=== PATIENT | male | born 1985 | race Caucasian/White ===

== ENCOUNTER 2016-11-23 16:55 | Emergency (ER) | payer OTHER ==
[2016-11-23 17:00] VITALS: BP 124/72; PULSE 101; RESP 20; TEMP 98.1
[2016-11-23] MEDS ORDERED: DIPH,PERTUS(ACELL)TETVAC-LF 0.5 ML VIAL IM ONE (17:24)
[2016-11-23] MEDS ORDERED: AMOXIC-POT CLAV 875-125MG 1 EACH TAB PO STA (17:26)
[2016-11-23] MEDS ORDERED: IBUPROFEN 800 MG TAB PO STA (17:27)
--- NOTE | 2016-11-23 18:15 | XR ---
EXAMINATION TYPE: XR hand complete LT DATE OF EXAM: 11/23/2016 COMPARISON: NONE HISTORY: Dog bite TECHNIQUE: 3 views FINDINGS: 3 views show no fracture nor dislocation. There is a linear lucency in the soft tissues between the f ourth and fifth proximal phalanges that could be a foreign body. Joint spaces are normal. Conclusion Possible small foreign body. No fracture.
--- NOTE | 2016-11-23 18:32 | ED ---
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 No other complaints or, he is not sure when he had loss tetanus shot down be updated today - Related Data Home Medications Medication Instructions Recorded Confirmed Hydrochlorothiazide [Hydrodiuril] 25 mg PO DAILY 11/23/16 11/23/16 Losartan [Cozaar] 50 mg PO DAILY 11/23/16 11/23/16 Previous Rx's Medication Instructions Recorded Amoxic-Pot Clav 875-125Mg 1 tab PO Q12HR #16 tablet 11/23/16 [Augmentin 875-125] Ibuprofen [Motrin] 600 mg PO Q6HR PRN #30 tab 11/23/16 Allergies Allergy/AdvReac Type Severity Reaction Status Date / Time No Known Allergies Allergy Verified 11/23/16 17:41 Review of Systems ROS Statement: Those systems with pertinent positive or pertinent negative responses have been documented in the HPI. ROS Other: All systems not noted in ROS Statement are negative. Past Medical History Past Medical History: No Reported History History of Any Multi-Drug Resistant Organisms: None Reported Additional Past Surgical History / Comment(s): Left knee surgery Past Psychological History: No Psychological Hx Reported Smoking Status: Never smoker Past Alcohol Use History: Occasional Past Drug Use History: None Reported General Exam - General Exam Comments Initial Comments: General: The patient is awake and alert, in no distress, and does not appear acutely ill. Skin: Skin has a wound which is about 1 cm between the fourth and fifth finger is quite tender mildly swollen decreased range of motion with pain, capillary refills are still within normal range and he is able to flex and extend his fingers at the metacarpophalangeal joints Eye: Pupils are equal, round and reactive to light, extra-ocular movements are intact; there is normal conjunctiva bilaterally. Ears, nose, mouth and throat: There are moist mucous membranes and no oral lesions. Neck: The neck is supple, there is no tenderness or JVD. Cardiovascular: There is a regular rate and rhythm. No murmur, rub or gallop is appreciated. Respiratory: To auscultation bilateral, no wheezing no rhonchi no distress respiratory richards noticed Gastrointestinal: Soft, non-distended, non-tender abdomen without masses or organomegaly noted. There is no rebound or guarding present. Bowel sounds are unremarkable. Back: There is no tenderness to palpation in the midline. There is no obvious deformity. Musculoskeletal: Normal ROM, no tenderness, There is no pedal edema. There is no calf tenderness or swelling. No cords were appreciated. Neurological: CN II-XII intact, Cranial nerves III through XII are intact. There are no obvious motor or sensory deficits. Coordination appears grossly intact. Speech is normal. Psychiatric: Cooperative, appropriate mood & affect, normal judgment. Limitations: no limitations Course Vital Signs 11/23/16 16:57 Temperature 98.1 F Pulse Rate 101 H Respiratory 20 Rate Blood Pressure 124/72 O2 Sat by Pulse 98 Oximetry Disposition Clinical Impression: Dog bite, Foreign body of left hand Disposition: HOME SELF-CARE Condition: Good Instructions: Animal Bite (ED) Prescriptions: Amoxic-Pot Clav 875-125Mg [Augmentin 875-125] 1 tab PO Q12HR #16 tablet Ibuprofen [Motrin] 600 mg PO Q6HR PRN #30 tab PRN Reason: Pain Referrals: None,Stated [Primary Care Provider] - 1-2 days Donavan Granados MD [STAFF PHYSICIAN] - 1-2 days
== END 2016-11-23 18:57 | disposition home or self-care (01) ==
LOC: EC 16:55
DX: S61.452A Open bite of left hand, initial encounter (principal); Z23 Encounter for immunization; Z79.899 Other long term (current) drug therapy; W54.0XXA Bitten by dog, initial encounter; Y99.0 Civilian activity done for income or pay
CPT/HCPCS: 90471; 90715; 99283

== ENCOUNTER → 2016-11-28 | Outpatient (CLI) | payer OTHER ==
[2016-11-28 11:27] LABS: Anisocytosis Slight; Basophils % (A) 1 %; CH 22.6; CHCM 31.4; Eosinophils # (A) 0.1 k/uL (0-0.7); Eosinophils % (A) 2 %; HCT 37.6 % (39.0-53.0); HDW 3.72; HGB 11.3 gm/dL (13.0-17.5); Hypochromasia Marked; Luc # (Auto) 0.09; Luc % (Auto) 2; Lymphocytes # (A) 1.6 k/uL (1.0-4.8); Lymphocytes % (A) 32 %; MCH 21.7 pg (25.0-35.0); MCV 72.4 fL (80.0-100.0); Mean Platelet Volume 7.5; Microcytosis Moderate; Monocytes # (A) 0.3 k/uL (0-1.0); Monocytes % (A) 6 %; Neutrophils # (A) 2.8 k/uL (1.3-7.7); Neutrophils % (A) 58 %; Poikilocytosis Slight; RDW 16.3 % (11.5-15.5); WBC 4.9 k/uL (3.8-10.6); WBC (Perox) 4.53
== END | disposition home or self-care (01) ==
LOC: LABPAT 11:00 → LABMAIN 11:00
PROVIDERS: ATTEND Orthopaedic Surgery
DX: Z01.812 Encounter for preprocedural laboratory examination (principal)
CPT/HCPCS: 85025

== ENCOUNTER → 2016-11-28 | Outpatient (CLI) | payer BC ==
--- NOTE | 2016-11-28 10:58 | HP ---
HISTORY AND PHYSICAL CHIEF COMPLAINT: Left hand pain. 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 Initially, he was seen in the emergency room and was started on oral antibiotics. He was also again given a tetanus booster. He had been working with restrictions since. He does note some soreness and stiffness. He denies fevers or chills. PAST MEDICAL HISTORY: Significant for hypertension. PAST SURGICAL HISTORY: Significant for right knee surgery. CURRENT MEDICATIONS: 1. Cozaar. 2. Augmentin. He denies drug allergies. FAMILY HISTORY: Significant for cancer. SOCIAL HISTORY: Negative for current tobacco or alcohol use. 16-POINT REVIEW OF SYSTEMS: Otherwise reviewed and is noncontributory. On examination, the patient is approximately 6 foot tall, 235 pounds. HEENT exam is nonfocal. Neck is supple. He is nontender about the left shoulder, elbow and wrist. On examination of his left hand, he does have a 6 mm wound over the dorsal left fourth interspace. He has full digital range of motion. There is no warmth or erythema. He has no significant purulence or erythema. Light touch is distally intact. X-rays to include multiple views left hand from 11/23/2016 shows evidence of a probable foreign body in the between the fourth and fifth digits at the MCP joint. IMPRESSION: Dog bite left hand with probable foreign body, left dorsal fourth interspace. RECOMMENDATIONS: I talked to the patient at length regarding his treatment options. At this point, we will plan to proceed with attempted foreign body removal along with irrigation and debridement. We will likely perform that as an outpatient procedure. We will have him continue with his Augmentin. MMODL / IJN: [id number] /
== END | disposition home or self-care (01) ==
LOC: LABPAT 09:01 → LABWHC1 09:01
PROVIDERS: ATTEND Urology
DX: N00-N99 Diseases of the genitourinary system (principal); E29.1 Testicular hypofunction
CPT/HCPCS: 36415; 81220; 84403

== ENCOUNTER 2016-11-29 12:12 | Day surgery (SDC) | payer BC, OTHER ==
[2016-11-28 13:01] VITALS: BMI 31.8
[~2016-11-29 12:12] MED LIST: DEXAMETHASONE SOD PHOSPHATE 10 MG/ML 1 ML VIAL IV ONE; LACTATED RINGERS 1,000 ML IV SCH; LIDOCAINE 1% 20 ML VIAL (10MG/ML) FOR IV START INTRADERMA PRN; MIDAZOLAM 2 MG/2 ML VIAL IV PRN; ONDANSETRON 4 MG/2 ML VIAL IVP ONE; SCOPOLAMINE 1.5MG/72HR PATCH TRANSDERM ONE; ceFAZolin 2 GM in SODIUM CHLORIDE 0.9% 100 ML IVPB ONE
[2016-11-29] MEDS ORDERED: ePHEDrine SULFATE/0.9% NACL/PF 50 MG/5 ML SYRINGE IV ONE (14:04)
[2016-11-29] MEDS ORDERED: fentaNYL (PF) 50 MCG/ML 2 ML AMP ONE (14:04)
[2016-11-29] MEDS ORDERED: LIDOCAINE 1% INJ 10MG/ML (20 ML MDV) ONE (14:04)
[2016-11-29] MEDS ORDERED: PROPOFOL 10 MG/ML 20 ML VIAL IV ONE (14:04)
[2016-11-29] MEDS ORDERED: MIDAZOLAM 2 MG/2 ML VIAL ONE (14:04)
--- NOTE | 2016-11-29 15:10 | P.OP ---
Date of Procedure: 11/29/16 Preoperative Diagnosis: Dog bite left hand with possible foreign body Postoperative Diagnosis: Same Procedure(s) Performed: Irrigation and debridement left hand fourth dorsal interspace dogbite Anesthesia: BERNY Surgeon: Donavan Granados Estimated Blood Loss (ml): 2 Pathology: none sent Condition: stable Disposition: PACU Indications for Procedure: The patient's a 31-year-old male who presents after sustaining a dog bite to his left hand last week. He had a 6 mm laceration over the fourth dorsal interspace between the fourth and fifth digits. There was a suspected foreign body. A discussion of the risks and benefits of operative intervention was made with the patient and his family. They opted to proceed. Operative risks to include infection, neurovascular injury, possible need for subsequent procedures was discussed. Informed consent was obtained. Operative Findings: 1 x 2 mm foreign body Description of Procedure: The patient was brought to the operating room, and after induction of general anesthesia the left upper extremity was prepped and draped in normal fashion. The tourniquet was inflated to 250 mg of mercury. The 6 mm laceration between the fourth and fifth digits on the dorsum of the hand was then explored. The tendon sheath appeared intact along the dorsum of the fourth digit. A 1 x 2 mm foreign body was found and removed. I did not find any larger fragments. The soft tissues were bluntly dissected clearly inspecting the entire region. The wound was copiously irrigated normal saline. I did use fluoroscopy and was unable to identify any radiopaque foreign bodies. The skin was reapproximated loosely with simple 3-0 nylon suture. A sterile dressing was applied. The tourniquet was deflated with less than 30 minutes total tourniquet time. The patient was awoken from general anesthesia and transferred to recovery room in good condition. Blood loss was estimated 2 mL. No complications were incurred. Sponge and needle counts were correct at the end the case.
--- NOTE | 2016-11-29 15:12 | FL ---
EXAMINATION TYPE: FL guidance operating room DATE OF EXAM: 11/29/2016 HISTORY: Flouroscopy time 8 seconds of fluoroscopy provided. IMPRESSION: 1. Fluoroscopy time.
[2016-11-29 15:20] VITALS: TEMP 98
[2016-11-29] MEDS: HYDROmorphone 1 MG/ML 1 ML SYRINGE IVP PRN ×2 (15:38→15:44)
[2016-11-29 16:00] VITALS: RESP 18
[2016-11-29] MEDS ORDERED: HYDROcodone/APAP 5-325MG 1 EACH TAB PO ONE (16:00)
[2016-11-29 16:34] VITALS: BP 122/74; PULSE 78
== END 2016-11-29 16:33 | disposition home or self-care (01) ==
LOC: OR 12:12
PROVIDERS: ATTEND Orthopaedic Surgery
DX: S61.452A Open bite of left hand, initial encounter (principal); W54.0XXA Bitten by dog, initial encounter; I10 Essential (primary) hypertension; Z79.899 Other long term (current) drug therapy
CPT/HCPCS: 20103; J2250; J1100; J0690; J2405; J2001; J3010; J1170; J2704

== ENCOUNTER → 2017-09-07 | Outpatient (CLI) | payer OTHER ==
--- NOTE | 2017-09-07 14:16 | XR ---
Left hand HISTORY: Trauma and pain 3 views of the left hand Correlation to prior exam 11/23/2016 Bone mineralization, joint spaces and alignment are maintained. IMPRESSION: No radiographically apparent fracture or dislocation
== END | disposition home or self-care (01) ==
LOC: RADXRMAIN 13:59
PROVIDERS: ATTEND Emergency Medicine
DX: S63.611A Unspecified sprain of left index finger, initial encounter (principal)

== ENCOUNTER 2018-06-16 18:12 | Inpatient (IN) | payer BC ==
[2018-06-16] MEDS ORDERED: SODIUM CHLORIDE 0.9% 500 ML 500 ML IV STA (18:45)
--- NOTE | 2018-06-16 18:54 | ED ---
General Adult HPI - General Chief complaint: Syncope Stated complaint: Near Syncope Time Seen by Provider: 06/16/18 18:23 Source: patient, family, RN notes reviewed Mode of arrival: ambulatory Limitations: no limitations - History of Present Illness Initial comments: Chief complaint and history of present illness; this 32-year-old male here with his significant other. The patient reports that increasingly Radha Celestin bends down his heart rate was up as high as 160 and he nearly passes out. Denies any chest painsignificant shortness of breath. - Related Data Home Medications Medication Instructions Recorded Confirmed Hydrochlorothiazide [Hydrodiuril] 25 mg PO DAILY 11/23/16 11/29/16 Losartan [Cozaar] 50 mg PO DAILY 11/23/16 11/29/16 Previous Rx's Medication Instructions Recorded Amoxic-Pot Clav 875-125Mg 1 tab PO Q12HR #16 tablet 11/23/16 [Augmentin 875-125] Ibuprofen [Motrin] 600 mg PO Q6HR PRN #30 tab 11/23/16 Amoxic-Pot Clav 875-125Mg 1 tab PO Q12HR #14 tablet 11/29/16 [Augmentin 875-125] Hydrocodone/Acetaminophen [Pioneer 1 each PO Q6HR PRN #20 tab 11/29/16 5-325] Allergies Allergy/AdvReac Type Severity Reaction Status Date / Time No Known Allergies Allergy Verified 06/16/18 18:20 Review of Systems ROS Statement: Those systems with pertinent positive or pertinent negative responses have been documented in the HPI. Review of systems patient denies headache or visual acuity changes no chest pain or shortness of breath. He does report that when he bends over he near faints he has a smart watch that told him his heart rate got as high as 160. This is been recurrent over the past several days and worse today. Patient denies abdominal pain no neuro deficits. All systems were reviewed. Past medical problems significant for hypertension without medication current blood pressure 134/86. He's had orthopedic surgery, tonsillectomy. Family history noncontribu tory ALLERGIES none. Denies drugs. He has been trying to lately has been trying [id number] medication, a name he can't remember. ROS Other: All systems not noted in ROS Statement are negative. Past Medical History Past Medical History: Hypertension History of Any Multi-Drug Resistant Organisms: None Reported Past Surgical History: Orthopedic Surgery, Tonsillectomy Additional Past Surgical History / Comment(s): Left knee surgery Past Anesthesia/Blood Transfusion Reactions: No Reported Reaction Additional Past Anesthesia/Blood Transfusion Reaction / Comment(s): dad had an issue with anesthesia, pt is unaware of what it was Past Psychological History: No Psychological Hx Reported Smoking Status: Never smoker Past Alcohol Use History: Occasional Past Drug Use History: None Reported - Past Family History Mother Family Medical History: No Reported History General Exam - General Exam Comments Initial Comments: General: The patient is awake and alert, in no distress, and does not appear acutely ill. Chief complaint is rapid heart rate with near-syncope when bending over and standing up. He measured his heart rate to be 166 earlier today. Current vital signs temperature 99.5 pulse 107 respiratory rate 18 pulse ox 99% room air blood pressure 134/86. He states it does not occur if he's not exerting himself. It only occurs with exertion Eye: Pupils are equal, round and reactive to light, extra-ocular movements are intact; there is normal conjunctiva bilaterally. No signs of icterus. Patient is wearing contact lenses. Ears, nose, mouth and throat: There are moist mucous membranes and no oral lesions. Neck: The neck is supple, there is no tenderness or JVD. Thyroid not enlarged. Cardiovascular: There is a regular rate and rhythm. No murmur, rub or gallop is appreciated. Rate 98 on examination, EKG showed normal sinus rhythm Respiratory: Lungs are clear to auscultation, respirations are non-labored, breath sounds are equal. No wheezes, stridor, rales, or rhonchi. Gastrointestinal: Soft, non-distended, non-tender abdomen without masses or organomegaly noted. There is no rebound or guarding present. No CVA tenderness. Bowel sounds are unremarkable. Back: There is no tenderness to palpation in the midline. There is no obvious deformity. No rashes noted. Musculoskeletal: Normal ROM, no tenderness, There is no pedal edema. There is no calf tenderness or swelling. Sensation intact. Pulses equal bilaterally 2+. Neurological: CN II-XII intact, There are no obvious motor or sensory deficits. Coordination appears grossly intact. Speech is normal. Near-syncope when he stands up after bending down and exerting himself. Skin: Skin is warm and dry and no rashes or lesions are noted. Psychiatric: Cooperative, appropriate mood & affect, normal judgment. Limitations: no limitations Course Vital Signs 06/16/18 18:16 Temperature 99.5 F Pulse Rate 107 H Respiratory 18 Rate Blood Pressure 134/86 O2 Sat by Pulse 99 Oximetry EKG Findings - EKG Comments: EKG Findings:: EKG was done and reviewed at 1833 showing normal sinus rhythm rate 98. DC interval was 160 QRS 106 QT 332 QTc 423. No acute ST elevation no ectopy no ischemic changes. No old EKG to compare to. Dr. Younger Medical Decision Making - Medical Decision Making Medical decision making; is a 32-year-old male with a complaint of very rapid heart rate to 166 with exertion. Patient reports been ongoing for several weeks and getting progressively worse. The patient has a smart watch that tells fast it was earlier. He reports he nearly passed out. Otherwise denies any chest pain or shortness of breath associated with this. Labs performed showing a white count of 8 hemoglobin 7.6 hematocrit 27 with a BUN of 4.1 and a BUN 15 creatinine 1.3 and a GFR 71. Once these numbers were realized that the patient was asked if he had any rectal bleeding and he admitted that over the years he's had significant amount of rectal bleeding. He has been told in the past that he has perianal tags. This. Although he may have internal hemorrhoids. He also states that after having bowel movements he has [address] to 112 paper that her prevent bleeding. This is been a chronic ongoing thing. The patient is symptomatically anemic. One unit of packed RBCs will be admini stered. The patient be admitted with evaluation by GI. Patient be admitted to hospitalist, Dr. Alejo, with whom I discussed the case. - Lab Data Result diagrams: 06/16/18 18:30 06/16/18 18:30 Lab Results 06/16/18 06/16/18 06/16/18 Range/Units 18:30 18:30 18:30 WBC 8.3 (3.8-10.6) k/uL RBC 4.28 L (4.30-5.90) m/uL Hgb 7.6 L (13.0-17.5) gm/dL Hct 27.0 L (39.0-53.0) % MCV 63.1 L (80.0-100.0) fL MCH 17.8 L (25.0-35.0) pg MCHC 28.2 L (31.0-37.0) g/dL RDW 17.2 H (11.5-15.5) % Plt Count 313 (150-450) k/uL Neutrophils % 68 % Lymphocytes % 24 % Monocytes % 4 % Eosinophils % 1 % Basophils % 1 % Neutrophils # 5.7 (1.3-7.7) k/uL Lymphocytes # 2.0 (1.0-4.8) k/uL Monocytes # 0.4 (0-1.0) k/uL Eosinophils # 0.1 (0-0.7) k/uL Basophils # 0.1 (0-0.2) k/uL Hypochromasia Marked Poikilocytosis Moderate Anisocytosis Slight Microcytosis Marked PT (9.0-12.0) sec INR (<1.2) APTT (22.0-30.0) sec D-Dimer (<0.60) mg/L FEU Sodium 142 (137-145) mmol/L Potassium 4.1 (3.5-5.1) mmol/L Chloride 111 H (98-107) mmol/L Carbon Dioxide 21 L (22-30) mmol/L Anion Gap 10 mmol/L BUN 15 (9-20) mg/dL Creatinine 1.30 H (0.66-1.25) mg/dL Est GFR (CKD-EPI)AfAm 83 (>60 ml/min/1.73 sqM) Est GFR (CKD-EPI)NonAf 71 (>60 ml/min/1.73 sqM) Glucose 79 (74-99) mg/dL Calcium 9.7 (8.4-10.2) mg/dL Magnesium 2.1 (1.6-2.3) mg/dL Total Bilirubin 0.6 (0.2-1.3) mg/dL AST 22 (17-59) U/L ALT 24 (21-72) U/L Alkaline Phosphatase 59 (38-126) U/L Creatine Kinase 82 (55-170) U/L CK-MB (CK-2) 0.5 (0.0-2.4) ng/mL Troponin I <0.012 (0.000-0.034) ng/mL Total Protein 6.6 (6.3-8.2) g/dL Albumin 4.2 (3.5-5.0) g/dL TSH 1.730 (0.465-4.680) mIU/L Influenza Type A RNA (Not Detectd) Influenza Type B (PCR) (Not Detectd) 06/16/18 06/16/18 Range/Units 18:30 18:38 WBC (3.8-10.6) k/uL RBC (4.30-5.90) m/uL Hgb (13.0-17.5) gm/dL Hct (39.0-53.0) % MCV (80.0-100.0) fL MCH (25.0-35.0) pg MCHC (31.0-37.0) g/dL RDW (11.5-15.5) % Plt Count (150-450) k/uL Neutrophils % % Lymphocytes % % Monocytes % % Eosinophils % % Basophils % % Neutrophils # (1.3-7.7) k/uL Lymphocytes # (1.0-4.8) k/uL Monocytes # (0-1.0) k/uL Eosinophils # (0-0.7) k/uL Basophils # (0-0.2) k/uL Hypochromasia Poikilocytosis Anisocytosis Microcytosis PT 10.6 (9.0-12.0) sec INR 1.0 (<1.2) APTT 21.6 L (22.0-30.0) sec D-Dimer 0.33 (<0.60) mg/L FEU Sodium (137-145) mmol/L Potassium (3.5-5.1) mmol/L Chloride (98-107) mmol/L Carbon Dioxide (22-30) mmol/L Anion Gap mmol/L BUN (9-20) mg/dL Creatinine (0.66-1.25) mg/dL Est GFR (CKD-EPI)AfAm (>60 ml/min/1.73 sqM) Est GFR (CKD-EPI)NonAf (>60 ml/min/1.73 sqM) Glucose (74-99) mg/dL Calcium (8.4-10.2) mg/dL Magnesium (1.6-2.3) mg/dL Total Bilirubin (0.2-1.3) mg/dL AST (17-59) U/L ALT (21-72) U/L Alkaline Phosphatase (38-126) U/L Creatine Kinase (55-170) U/L CK-MB (CK-2) (0.0-2.4) ng/mL Troponin I (0.000-0.034) ng/mL Total Protein (6.3-8.2) g/dL Albumin (3.5-5.0) g/dL TSH (0.465-4.680) mIU/L Influenza Type A RNA Not Detected (Not Detectd) Influenza Type B (PCR) Not Detected (Not Detectd) Disposition Clinical Impression: Symptomatic anemia, GI bleed Disposition: ADMITTED IP TO THIS HOSP Condition: Fair Is patient prescribed a controlled substance at d/c from ED?: No Referrals: None,Stated [Primary Care Provider] - 1-2 days
[2018-06-16 18:56] LABS: Anisocytosis Slight; Basophils # (A) 0.1 k/uL (0-0.2); Basophils % (A) 1 %; Eosinophils # (A) 0.1 k/uL (0-0.7); Eosinophils % (A) 1 %; HGB 7.6 gm/dL (13.0-17.5); Hypochromasia Marked; Lymphocytes % (A) 24 %; MCH 17.8 pg (25.0-35.0); MCHC 28.2 g/dL (31.0-37.0); MCV 63.1 fL (80.0-100.0); Mean Platelet Volume 10.8; Microcytosis Marked; Monocytes # (A) 0.4 k/uL (0-1.0); Monocytes % (A) 4 %; Neutrophils # (A) 5.7 k/uL (1.3-7.7); Neutrophils % (A) 68 %; Platelet Count 313 k/uL (150-450); Poikilocytosis Moderate; RBC 4.28 m/uL (4.30-5.90); RDW 17.2 % (11.5-15.5); WBC 8.3 k/uL (3.8-10.6)
[2018-06-16 19:12] LABS: Albumin 4.2 g/dL (3.5-5.0); Calcium 9.7 mg/dL (8.4-10.2); Magnesium 2.1 mg/dL (1.6-2.3); Potassium 4.1 mmol/L (3.5-5.1); Total Bilirubin 0.6 mg/dL (0.2-1.3); Total Protein 6.6 g/dL (6.3-8.2)
[2018-06-16 19:20] LABS: D-Dimer 0.33 mg/L FEU (<0.60); Prothrombin Time 10.6 sec (9.0-12.0)
[2018-06-16 19:27] LABS: Creatine Kinase MB 0.5 ng/mL (0.0-2.4); Troponin I <0.012 ng/mL (0.000-0.034)
[2018-06-16 19:29] LABS: Partial Thromboplastin Time 21.6 sec (22.0-30.0)
--- NOTE | 2018-06-16 19:50 | XR ---
EXAMINATION TYPE: XR chest 2V DATE OF EXAM: 06/16/2018 COMPARISON: None INDICATION: Dysrhythmia TECHNIQUE: Frontal and lateral views of the chest are obtained. FINDINGS: The heart size is normal. The pulmonary vasculature is normal. The lungs are clear. EKG leads overlie the chest. IMPRESSION: 1. No acute pulmonary process.
[2018-06-16] MEDS ORDERED: NALOXONE 0.4 MG/ML 1 ML VIAL IV PRN (20:50)
[2018-06-16] MEDS: SODIUM CHLORIDE 0.9% 1,000 ML IV SCH (22:42)
[2018-06-17] MEDS: SODIUM CHLORIDE 0.9% 1,000 ML IV SCH ×3 (05:09→20:49)
[2018-06-17 07:45] LABS: Glucose,Whole Blood 100 mg/dL (75-99)
[2018-06-17 09:10] LABS: Anisocytosis Slight; HCT 27.5 % (39.0-53.0); HGB 7.9 gm/dL (13.0-17.5); Hypochromasia Marked; MCHC 28.8 g/dL (31.0-37.0); Microcytosis Marked; Platelet Count 239 k/uL (150-450); Poikilocytosis Moderate; RBC 4.17 m/uL (4.30-5.90); RDW 18.3 % (11.5-15.5); WBC 4.6 k/uL (3.8-10.6)
[2018-06-17 12:06] LABS: Glucose,Whole Blood 101 mg/dL (75-99)
[2018-06-17] MEDS: PANTOPRAZOLE 40 MG/10 ML VIAL IVP SCH (14:04)
[2018-06-17 14:20] LABS: Anisocytosis Slight; HCT 27.7 % (39.0-53.0); HGB 8.1 gm/dL (13.0-17.5); Hypochromasia Marked; MCH 19.2 pg (25.0-35.0); MCHC 29.4 g/dL (31.0-37.0); MCV 65.4 fL (80.0-100.0); Mean Platelet Volume 11.3; Microcytosis Marked; Platelet Count 235 k/uL (150-450); Poikilocytosis Moderate; RBC 4.23 m/uL (4.30-5.90); RDW 18.3 % (11.5-15.5); WBC 4.5 k/uL (3.8-10.6)
[2018-06-17 17:41] LABS: Glucose,Whole Blood 80 mg/dL (75-99)
[2018-06-17 18:07] LABS: Anisocytosis Slight; HCT 29.4 % (39.0-53.0); HGB 8.7 gm/dL (13.0-17.5); Hypochromasia Marked; MCH 20.1 pg (25.0-35.0); MCHC 29.6 g/dL (31.0-37.0); MCV 67.9 fL (80.0-100.0); Mean Platelet Volume 8.7; Microcytosis Marked; Platelet Count 310 k/uL (150-450); Poikilocytosis Marked; RBC 4.33 m/uL (4.30-5.90); RDW 18.8 % (11.5-15.5); WBC 4.1 k/uL (3.8-10.6)
--- NOTE | 2018-06-17 22:26 | P.HPIM ---
History of Present Illness H&P Date: 06/17/18 Chief Complaint: Exertional shortness of breath Patient is a 32-year-old male with a known history of hypertension currently not on any medications, previous history of colonoscopy due to GI bleed about 5 years ago came to ER with the complaints of increased shortness of breath after climbing up one states for the past few days and was also noted to have elevated heart rate up to 160s and early passed out. Patient came to ER for evaluation. Patient noticed to have bright blood in the toilet for past few days. Otherwise patient denied any complaints of chest pain. No shortness of breath at rest. No leg swelling. Patient was found to have a hemoglobin level of 7.6 on admission. Patient underwent 1 unit of PRBC transfusion due to symptomatic anemia. MCV 63 and elevated RDW. chest x-ray showed no acute cardio pulmonary process. EKG showed sinus tachycardia. Review of Systems Constitutional: Patient denies any fever or chills . Generalized weakness. Abdomen: Patient denied nausea vomiting and diarrhea and abdominal pain. Blood in the stool. Cardiovascular: Patient denies any chest pain or short of breath no palpitations. Exertional shortness of breath. No leg swelling. Tachycardia. Respiratory: patient denied any cough is from production. No shortness of breath Neurologic: Patient denied any numbness or tingling headache. Musculoskeletal: Patient denies any complaints of joint swelling or deformity. Skin: Negative Psychiatric: Negative Endocrine: No heat or cold intolerance. No recent weight gain. Genitourinary: No dysuria or hematuria. All other 14 point ROS negative except the above Past Medical History Past Medical History: Hypertension History of Any Multi-Drug Resistant Organisms: None Reported Past Surgical History: Orthopedic Surgery, Tonsillectomy Additional Past Surgical History / Comment(s): Left knee surgery Past Anesthesia/Blood Transfusion Reactions: No Reported Reaction Additional Past Anesthesia/Blood Transfusion Reaction / Comment(s): dad had an issue with anesthesia, pt is unaware of what it was Past Psychological History: No Psychological Hx Reported Smoking Status: Never smoker Past Alcohol Use History: Occasional Past Drug Use History: None Reported - Past Family History Mother Family Medical History: No Reported History Medications and Allergies Home Medications Medication Instructions Recorded Confirmed Type No Known Home Medications 06/16/18 06/16/18 History Allergies Allergy/AdvReac Type Severity Reaction Status Date / Time No Known Allergies Allergy Verified 06/16/18 21:13 Physical Exam Vitals: Vital Signs Temp Pulse Pulse Resp BP BP Pulse Ox 06/17/18 08:00 98.2 F 66 18 127/81 98 06/17/18 00:01 98.6 F 83 16 131/88 98 06/16/18 22:27 98.7 F 81 16 120/81 98 06/16/18 21:41 98.9 F 82 18 127/81 06/16/18 21:31 98.9 F 71 20 119/86 06/16/18 18:16 99.5 F 107 H 18 134/86 99 Intake and Output 06/16/18 06/17/18 06/17/18 22:59 06:59 14:59 Intake Total 650 310 Balance 650 310 Intake: Amount of Fluid Infused ( 650 ml) Blood Product 0 310 Rc As-1 Unit 0 310 [id number] Other: Weight 105.233 kg PHYSICAL EXAMINATION: Patient is lying in the bed comfortably, no acute distress, awake alert and oriented.. HEENT: Normocephalic. Neck is supple. Pupils reactive. Nostrils clear. Oral cavity is moist. Ears reveal no drainage. Neck reveals no JVD, carotid bruits, or thyromegaly. CHEST EXAMINATION: Trachea is central. Symmetrical expansion. Lung sinclair clear to auscultation and percussion. CARDIAC: Normal S1, S2 with no gallops. No murmurs ABDOMEN: Soft. Bowel sounds normal. No organomegaly. No abdominal bruits. Extremities: reveal no edema. No clubbing or cyanosis Neurologically awake, alert, oriented x3 with well-coordinated movements. No focal deficits noted Skin: No rash or skin lesions. Psychiatric: Coperative. Nonsuicidal Musculoskeletal: No joint swelling or deformity. Normal range of motion. Results CBC & Chem 7: 06/17/18 17:40 06/16/18 18:30 Labs: Abnormal Lab Results - Last 24 Hours (Table) 06/16/18 06/16/18 06/16/18 Range/Units 18:30 18:30 18:30 RBC 4.28 L (4.30-5.90) m/uL Hgb 7.6 L (13.0-17.5) gm/dL Hct 27.0 L (39.0-53.0) % MCV 63.1 L (80.0-100.0) fL MCH 17.8 L (25.0-35.0) pg MCHC 28.2 L (31.0-37.0) g/dL RDW 17.2 H (11.5-15.5) % APTT 21.6 L (22.0-30.0) sec Chloride 111 H (98-107) mmol/L Carbon Dioxide 21 L (22-30) mmol/L Creatinine 1.30 H (0.66-1.25) mg/dL POC Glucose (mg/dL) (75-99) mg/dL Crossmatch 06/16/18 06/17/18 06/17/18 Range/Units 19:50 07:33 08:40 RBC 4.17 L (4.30-5.90) m/uL Hgb 7.9 L (13.0-17.5) gm/dL Hct 27.5 L (39.0-53.0) % MCV 66.0 L (80.0-100.0) fL MCH 19.0 L (25.0-35.0) pg MCHC 28.8 L (31.0-37.0) g/dL RDW 18.3 H (11.5-15.5) % APTT (22.0-30.0) sec Chloride (98-107) mmol/L Carbon Dioxide (22-30) mmol/L Creatinine (0.66-1.25) mg/dL POC Glucose (mg/dL) 100 H (75-99) mg/dL Crossmatch See Detail Thrombosis Risk Factor Assmnt - DVT/VTE Prophylaxis DVT/VTE Prophylaxis: Mechanical Prophylaxis ordered - Choose All That Apply Each Factor Represents 1 point: Obesity (BMI >25) Thrombosis Risk Factor Assessment Total Risk Factor Score: 1 Thrombosis Risk Factor Assessment Level: Low Risk Assessment and Plan Assessment: Acute acute on chronic blood loss anemia Acute lower GI bleed Symptomatic anemia Microcytic anemia. Rule out iron deficiency Hypertension history not on any medications currently. Previous history of colonoscopy about 5 years ago Plan: Patient be continued on IV hydration. Patient was given 1 unit of PRBC. Continue to monitor H&H. Denied any active bleeding at this time. GI will be consulted for evaluation. Will check iron profile. Follow up closely and further recommendations based on the clinical course. Time with Patient: Greater than 30
[2018-06-18] MEDS: SODIUM CHLORIDE 0.9% 1,000 ML IV SCH ×3 (04:07→17:07)
[2018-06-18 07:46] LABS: Anisocytosis Slight; HCT 28.4 % (39.0-53.0); HGB 8.3 gm/dL (13.0-17.5); Hypochromasia Marked; MCH 19.1 pg (25.0-35.0); MCHC 29.1 g/dL (31.0-37.0); MCV 65.8 fL (80.0-100.0); Mean Platelet Volume 8.2; Microcytosis Marked; Platelet Count 268 k/uL (150-450); Poikilocytosis Moderate; RBC 4.32 m/uL (4.30-5.90); RDW 18.8 % (11.5-15.5); WBC 4.6 k/uL (3.8-10.6)
--- NOTE | 2018-06-18 08:58 | P.GSCN ---
History of Present Illness Consult date: 06/18/18 History of present illness: 32-year-old male presents to the emergency department with complaints of tachycardia and feeling of heart racing. He states that he noticed his heart rate was in the 160s on his Smart watch while he was not doing any intense activity. He states that he notices his heart rate does become quite tachycardic during activity. He states for approximately 5 years he has had a heavy amount of rectal bleeding after bowel movements. He states that after every bowel movement he has, the toilet bowl is full of blood and he continues to bleed for approximately 10 minutes after. He has had this investigated previously. This was done approximately 5 years ago at [facility] and he had a colonoscopy at that time. He states that there were no significant findings other than hemorrhoids and some skin tags. He states that occasionally he does have pain at his rectum. Currently, he denies any pain. He states his last bowel movement was yesterday in which she did have gross blood. He denies any current chest pain or shortness of breath. He denies abdominal pain. He denies any family history of inflammatory bowel disease. Review of Systems All systems: negative Past Medical History Past Medical History: Hypertension History of Any Multi-Drug Resistant Organisms: None Reported Past Surgical History: Orthopedic Surgery, Tonsillectomy Additional Past Surgical History / Comment(s): Left knee surgery Past Anesthesia/Blood Transfusion Reactions: No Reported Reaction Additional Past Anesthesia/Blood Transfusion Reaction / Comm: dad had an issue with anesthesia, pt is unaware of what it was Past Psychological History: No Psychological Hx Reported Smoking Status: Never smoker Past Alcohol Use History: Occasional Past Drug Use History: None Reported - Past Family History Mother Family Medical History: No Reported History Medications and Allergies Home Medications Medication Instructions Recorded Confirmed Type No Known Home Medications 06/16/18 06/16/18 History Allergies Allergy/AdvReac Type Severity Reaction Status Date / Time No Known Allergies Allergy Verified 06/16/18 21:13 Surgical - Exam Osteopathic Statement: *. No significant issues noted on an osteopathic structural exam other than those noted in the History and Physical/Consult. Vital Signs Temp Pulse Resp BP Pulse Ox 99.5 F 107 H 18 134/86 99 06/16/18 18:16 06/16/18 18:16 06/16/18 18:16 06/16/18 18:16 06/16/18 18:16 - General well nourished, no distress - Eyes PERRL - Neck trachea midline - Respiratory normal respiratory effort - Abdomen Soft, nontender, nondistended, no rebound, guarding - Neurologic normal coordination, normal sensation - Psychiatric oriented to time, oriented to person, oriented to place Results - Labs 06/18/18 06:53 06/16/18 18:30 Abnormal Lab Results - Last 24 Hours (Table) 06/17/18 06/17/18 06/17/18 Range/Units 08:40 11:53 13:57 RBC 4.17 L 4.23 L (4.30-5.90) m/uL Hgb 7.9 L 8.1 L (13.0-17.5) gm/dL Hct 27.5 L 27.7 L (39.0-53.0) % MCV 66.0 L 65.4 L (80.0-100.0) fL MCH 19.0 L 19.2 L (25.0-35.0) pg MCHC 28.8 L 29.4 L (31.0-37.0) g/dL RDW 18.3 H 18.3 H (11.5-15.5) % POC Glucose (mg/dL) 101 H (75-99) mg/dL 06/17/18 06/18/18 Range/Units 17:40 06:53 RBC (4.30-5.90) m/uL Hgb 8.7 L 8.3 L (13.0-17.5) gm/dL Hct 29.4 L 28.4 L (39.0-53.0) % MCV 67.9 L 65.8 L (80.0-100.0) fL MCH 20.1 L 19.1 L (25.0-35.0) pg MCHC 29.6 L 29.1 L (31.0-37.0) g/dL RDW 18.8 H 18.8 H (11.5-15.5) % POC Glucose (mg/dL) (75-99) mg/dL Assessment and Plan (1) GI bleed Narrative/Plan: 32-year-old male with symptomatic anemia, GI bleed - The patient most likely has a hemorrhoidal bleed based on history. Due to the symptomatic anemia and requirement of 1 unit of packed red blood cell, we will plan for investigation during this admission. We will plan for colonoscopy and hemorrhoidectomy to be performed in the OR. We will continue the patient on clear liquid diet today along with nothing by mouth after midnight. He will undergo a colon preparation today. - Continue to follow hemoglobin levels. Transfuse as necessary. Current Visit: Yes Status: Acute Code(s): K92.2 - GASTROINTESTINAL HEMORRHAGE, UNSPECIFIED SNOMED Code(s): 99767888
[2018-06-18 09:34] LABS: Iron Saturation 3.38 (15.00-50.00)
[2018-06-18] MEDS: PANTOPRAZOLE 40 MG/10 ML VIAL IVP SCH (10:44)
[2018-06-18] MEDS: SODIUM FERRIC GLUCONAT-SUCROSE 125 MG in SODIUM CHLORIDE 0.9% 100 ML IVPB SCH (11:21)
[2018-06-18] MEDS ORDERED: PEG 3350-NA SULF,BICARB,CL/KCL 4,000 ML BOTTLE PO ONE (12:00)
--- NOTE | 2018-06-18 13:07 | P.CONS ---
History of Present Illness - Reason for Consult Consult date: 06/17/18 Lower GI bleed - History of Present Illness The patient is a 32-year-old male who presented to the Emergency Department with complaints of feeling his heart racing. He reported his heart rate does become quite tachycardic during activity. He states for approximately 5 years he has had a heavy amount of rectal bleeding after bowel movements. He states that after every bowel movement the toilet bowl is full of blood and he continues to bleed for approximately 10 minutes after. He has had this investigated previously. He had a colonoscopy around 5b years ago and there were no significant findings other than hemorrhoids and some skin tags. He states that occasionally he does have pain at his rectum. Currently, he denies any pain. He states his last bowel movement was the day prior which showed gross blood. He denies any current chest pain or shortness of breath. He denies abdominal pain. He denies any family history of inflammatory bowel disease. Laboratory workup showed profound anemia with microcytosis consistent with blood loss anemia. Review of Systems CONSTITUTIONAL: Denies any fevers, chills, weight change or fatigue. CARDIOVASCULAR: Denies any chest pain, palpitations high or low blood pressures RESPIRATORY: Denies any shortness of breath, hemoptysis or cough. GENITOURINARY: No dysuria or hematuria. MUSCULOSKELETAL: No weakness reported. SKIN: Denies any new rashes or lesions, jaundice or pallor. PSYCHIATRIC: Denies any depression or anxiety. NEUROLOGY: Denies headache, denies any new focal deficits. EARS/NOSE/THROAT: No recent hearing change, congestion, nasal discharge or sore throat. EYES: No pain in eyes, discharge or change in vision. GASTROINTESTINAL: As per HPI. Past Medical History Past Medical History: Hypertension History of Any Multi-Drug Resistant Organisms: None Reported Past Surgical History: Orthopedic Surgery, Tonsillectomy Additional Past Surgical History / Comment(s): Left knee surgery Past Anesthesia/Blood Transfusion Reactions: No Reported Reaction Additional Past Anesthesia/Blood Transfusion Reaction / Comm: dad had an issue with anesthesia, pt is unaware of what it was Past Psychological History: No Psychological Hx Reported Smoking Status: Never smoker Past Alcohol Use History: Occasional Past Drug Use History: None Reported - Past Family History Mother Family Medical History: No Reported History Medications and Allergies Home Medications Medication Instructions Recorded Confirmed Type No Known Home Medications 06/16/18 06/16/18 History Allergies Allergy/AdvReac Type Severity Reaction Status Date / Time No Known Allergies Allergy Verified 06/16/18 21:13 Physical Exam Vitals: Vital Signs Temp Pulse Pulse Resp BP BP Pulse Ox 06/17/18 08:00 98.2 F 66 18 127/81 98 06/17/18 00:01 98.6 F 83 16 131/88 98 06/16/18 22:27 98.7 F 81 16 120/81 98 06/16/18 21:41 98.9 F 82 18 127/81 06/16/18 21:31 98.9 F 71 20 119/86 06/16/18 18:16 99.5 F 107 H 18 134/86 99 Intake and Output 06/16/18 06/17/18 06/17/18 22:59 06:59 14:59 Intake Total 650 310 Balance 650 310 Intake: Amount of Fluid Infused ( 650 ml) Blood Product 0 310 Rc As-1 Unit 0 310 [id number] Other: Weight 105.233 kg On physical examination, patient appears very pleasant, stated age in no apparent distress. HEAD: Normocephalic, atraumatic. EYES: No scleral icterus. No conjunctival injection. MOUTH: No lesions, tongue midline. NECK: Trachea midline, no gross abnormalities. CHEST: Clear to auscultation with no wheezing or rhonchi appreciated. HEART: Regular, no abnormal solids, murmurs or friction rubs. ABDOMEN: Soft. Bowel sounds are positive. No organomegaly. No guarding or rigidity. Rectal exam: Perianal area did not show any fissures or fistulas. There were prominent skin tags. No masses felt on digital rectal examination. The anal canal felt tight but he did not experience extreme pain. There was no blood on the gloved examining finger. EXTREMITIES: No pedal edema. SKIN: No rashes, no jaundice. NEUROLOGIC: Alert and oriented. No focal deficits. Results CBC & Chem 7: 06/18/18 06:53 06/16/18 18:30 Labs: Abnormal Lab Results - Last 24 Hours (Table) 06/16/18 06/16/18 06/16/18 Range/Units 18:30 18:30 18:30 RBC 4.28 L (4.30-5.90) m/uL Hgb 7.6 L (13.0-17.5) gm/dL Hct 27.0 L (39.0-53.0) % MCV 63.1 L (80.0-100.0) fL MCH 17.8 L (25.0-35.0) pg MCHC 28.2 L (31.0-37.0) g/dL RDW 17.2 H (11.5-15.5) % APTT 21.6 L (22.0-30.0) sec Chloride 111 H (98-107) mmol/L Carbon Dioxide 21 L (22-30) mmol/L Creatinine 1.30 H (0.66-1.25) mg/dL POC Glucose (mg/dL) (75-99) mg/dL Crossmatch 06/16/18 06/17/18 06/17/18 Range/Units 19:50 07:33 08:40 RBC 4.17 L (4.30-5.90) m/uL Hgb 7.9 L (13.0-17.5) gm/dL Hct 27.5 L (39.0-53.0) % MCV 66.0 L (80.0-100.0) fL MCH 19.0 L (25.0-35.0) pg MCHC 28.8 L (31.0-37.0) g/dL RDW 18.3 H (11.5-15.5) % APTT (22.0-30.0) sec Chloride (98-107) mmol/L Carbon Dioxide (22-30) mmol/L Creatinine (0.66-1.25) mg/dL POC Glucose (mg/dL) 100 H (75-99) mg/dL Crossmatch See Detail 06/17/18 Range/Units 11:53 RBC (4.30-5.90) m/uL Hgb (13.0-17.5) gm/dL Hct (39.0-53.0) % MCV (80.0-100.0) fL MCH (25.0-35.0) pg MCHC (31.0-37.0) g/dL RDW (11.5-15.5) % APTT (22.0-30.0) sec Chloride (98-107) mmol/L Carbon Dioxide (22-30) mmol/L Creatinine (0.66-1.25) mg/dL POC Glucose (mg/dL) 101 H (75-99) mg/dL Crossmatch Assessment and Plan Assessment: Rectal bleeding and symptomatic anemia likely on the basis of perianal disease. Doubt inflammatory bowel disease or neoplasia based on his history and prior workup. Plan: I recommended consultation with general surgery so the patient can be investigated with subsequent intervention as indicated in light of the chronicity of his problem and the profound symptomatic anemia.
[2018-06-18] MEDS ORDERED: THIAMINE 100 MG TAB PO SCH (17:00)
[2018-06-18] MEDS ORDERED: THIAMINE 100 MG/ML 2 ML VIAL IM STA (20:06)
[2018-06-18] MEDS ORDERED: LORazepam 2 MG/ML INJ IV PRN ×3 (20:06)
[2018-06-18 20:28] LABS: Glucose,Whole Blood 74 mg/dL (75-99)
--- NOTE | 2018-06-18 23:19 | P.PN ---
Subjective Progress Note Date: 06/18/18 Principal diagnosis: Bright red blood per rectum Patient seen lying in bed. No abdominal pain. He is tolerating liquids. He is reporting that he continues to have rectal bleeding. Objective - Vital Signs Vital signs: Vital Signs Temp 97.5 F L 06/18/18 19:48 Pulse 63 06/18/18 19:48 Resp 15 06/18/18 19:48 BP 131/90 06/18/18 19:48 Pulse Ox 100 06/18/18 19:48 Intake & Output 06/18/18 06/18/18 06/19/18 06:59 18:59 06:59 Intake Total 118 Balance 118 Intake: Oral 118 Other: Voiding Method Toilet # Voids 2 - Exam On physical examination, patient appears comfortable in no apparent distress. HEAD: Normocephalic, atraumatic. EYES: No scleral icterus. No conjunctival injection. MOUTH: No lesions, tongue midline. NECK: Trachea midline, no gross abnormalities. CHEST: Clear to auscultation with no wheezing or rhonchi appreciated. HEART: Regular rate and rhythm. ABDOMEN: Soft, obese. Bowel sounds are positive. No organomegaly. No guarding or rigidity. EXTREMITIES: No pedal edema. SKIN: No rashes, no jaundice. NEUROLOGIC: Alert and oriented x3. No focal deficits. - Labs CBC & Chem 7: 06/18/18 06:53 06/16/18 18:30 Labs: Abnormal Lab Results - Last 24 Hours (Table) 06/17/18 06/17/18 06/18/18 Range/Units 08:40 08:40 06:53 Hgb 8.3 L (13.0-17.5) gm/dL Hct 28.4 L (39.0-53.0) % MCV 65.8 L (80.0-100.0) fL MCH 19.1 L (25.0-35.0) pg MCHC 29.1 L (31.0-37.0) g/dL RDW 18.8 H (11.5-15.5) % POC Glucose (mg/dL) (75-99) mg/dL Iron 13 L (65-175) ug/dL Iron Saturation 3.38 L (15.00-50.00) Ferritin 1.9 L (22.0-322.0) ng/mL 06/18/18 Range/Units 20:16 Hgb (13.0-17.5) gm/dL Hct (39.0-53.0) % MCV (80.0-100.0) fL MCH (25.0-35.0) pg MCHC (31.0-37.0) g/dL RDW (11.5-15.5) % POC Glucose (mg/dL) 74 L (75-99) mg/dL Iron (65-175) ug/dL Iron Saturation (15.00-50.00) Ferritin (22.0-322.0) ng/mL Assessment and Plan (1) GI bleed Narrative/Plan: Patient presenting with complaints of bright red blood per rectum. He has undergone endoscopic evaluation in the past with colonoscopy a few years ago. Currently is scheduled for repeat colonoscopic exam with the surgical service. Current Visit: Yes Status: Acute Code(s): K92.2 - GASTROINTESTINAL HEMORRHAGE, UNSPECIFIED SNOMED Code(s): 26204295 (2) Symptomatic anemia Narrative/Plan: Symptomatic anemia due to anemia of acute blood loss. Current Visit: Yes Status: Acute Code(s): D64.9 - ANEMIA, UNSPECIFIED SNOMED Code(s): 488489934 Plan: Supportive care Monitor hemoglobin and transfuse as needed Okay for liquids Continue to monitor stool output Surgical service following, appreciate the recommendations Plan is for colonoscopy tomorrow with the surgical service Thank you for allowing us to participate in the care of the patient we will continue to follow
[2018-06-19] MEDS: SODIUM CHLORIDE 0.9% 1,000 ML IV SCH ×2 (05:57→18:48)
[2018-06-19 07:36] LABS: Glucose,Whole Blood 91 mg/dL (75-99)
[2018-06-19] MEDS: SODIUM FERRIC GLUCONAT-SUCROSE 125 MG in SODIUM CHLORIDE 0.9% 100 ML IVPB SCH (09:06)
[2018-06-19] MEDS: PANTOPRAZOLE 40 MG/10 ML VIAL IVP SCH (09:06)
[2018-06-19 09:45] LABS: Anion Gap 5 mmol/L; Blood Urea Nitrogen 6 mg/dL (9-20); Calcium 9.3 mg/dL (8.4-10.2); Carbon Dioxide 26 mmol/L (22-30); Chloride 110 mmol/L (98-107); Glucose 87 mg/dL (74-99); Potassium 4.2 mmol/L (3.5-5.1); Sodium 141 mmol/L (137-145)
[2018-06-19 10:25] LABS: Anisocytosis Slight; Basophils # (A) 0.1 k/uL (0-0.2); Basophils % (A) 1 %; Eosinophils # (A) 0.1 k/uL (0-0.7); Eosinophils % (A) 2 %; HCT 29.9 % (39.0-53.0); HGB 8.7 gm/dL (13.0-17.5); Hypochromasia Marked; Lymphocytes # (A) 1.8 k/uL (1.0-4.8); Lymphocytes % (A) 40 %; MCH 19.9 pg (25.0-35.0); MCHC 28.9 g/dL (31.0-37.0); MCV 68.9 fL (80.0-100.0); Mean Platelet Volume 8.5; Microcytosis Marked; Monocytes # (A) 0.2 k/uL (0-1.0); Monocytes % (A) 5 %; Neutrophils # (A) 2.1 k/uL (1.3-7.7); Neutrophils % (A) 48 %; Platelet Count 299 k/uL (150-450); Poikilocytosis Moderate; RBC 4.34 m/uL (4.30-5.90); RDW 18.9 % (11.5-15.5); WBC 4.4 k/uL (3.8-10.6)
--- NOTE | 2018-06-19 10:31 | P.PN ---
Subjective Progress Note Date: 06/19/18 Principal diagnosis: Hematochezia Colonoscopy scheduled this afternoon with general surgery. Patient states he passed blood tinged bowel movements when taking his bowel prep last night. Minimal abdominal discomfort. Afebrile. Hemoglobin yesterday 8.3. Objective - Vital Signs Vital signs: Vital Signs Temp 98.3 F 06/19/18 07:23 Pulse 55 L 06/19/18 07:23 Resp 15 06/19/18 07:23 BP 126/78 06/19/18 07:23 Pulse Ox 96 06/19/18 07:23 Intake & Output 06/18/18 06/19/18 06/19/18 18:59 06:59 18:59 Intake Total 1618 Balance 1618 Intake: Intake, IV Titration 1500 Amount Sodium Chloride 0.9% 1, 1500 000 ml @ 125 mls/hr IV . Q8H EMILY Rx#:[id number] Oral 118 Other: Voiding Method Toilet # Voids 2 - Exam General appearance: The patient is alert, oriented, in no acute distress. HET: Head is normocephalic and atraumatic. Pupils are equal and reactive. Oropharynx is clear without lesions. Neck: Supple without lymphadenopathy. Trachea midline. Heart: S1 S2. Regular rate and rhythm. Lungs: No crackles or wheezes are heard. Abdomen: Soft, nontender, nondistended with bowel sounds. No peritoneal signs. No palpable organomegaly or masses. Extremities: Normal skin color and turgor. No cyanosis, rash, ulceration, clubbing, or edema. Radial and pedal pulses are 2/4 bilaterally. Neurological: No focal deficits. Strength and sensation are grossly intact. - Labs CBC & Chem 7: 06/18/18 06:53 06/19/18 09:01 Labs: Abnormal Lab Results - Last 24 Hours (Table) 06/18/18 06/19/18 Range/Units 20:16 09:01 Chloride 110 H (98-107) mmol/L BUN 6 L (9-20) mg/dL POC Glucose (mg/dL) 74 L (75-99) mg/dL Assessment and Plan (1) GI bleed Narrative/Plan: Patient presenting with complaints of bright red blood per rectum. He has undergone endoscopic evaluation in the past with colonoscopy a few years ago. Currently is scheduled for repeat colonoscopic exam with the surgical service. Current Visit: Yes Status: Acute Code(s): K92.2 - GASTROINTESTINAL HEMORRHAGE, UNSPECIFIED SNOMED Code(s): 87532797 (2) Symptomatic anemia Current Visit: Yes Status: Acute Code(s): D64.9 - ANEMIA, UNSPECIFIED SNOMED Code(s): 992432478 Plan: Supportive care Monitor hemoglobin and transfuse as needed Nothing by mouth Surgical service following, appreciate the recommendations Plan is for colonoscopy today with the surgical service Thank you for allowing us to participate in the care of the patient we will continue to follow Assessment and plan a care discussed with Dr. Alejandro
[2018-06-19] MEDS ORDERED: IV FLUID CONTINUATION 1,000 ML IV ONE (14:15)
[2018-06-19] MEDS ORDERED: ONDANSETRON 4 MG/2 ML VIAL IVP ONE (14:50)
[2018-06-19] MEDS ORDERED: DEXAMETHASONE SOD PHOS (MDV) 100 MG/10 ML VIAL IV ONE (14:51)
[2018-06-19] MEDS ORDERED: fentaNYL (PF) 50 MCG/ML 2 ML AMP ONE (15:33)
[2018-06-19] MEDS ORDERED: KETAMINE 10 MG/ML 20 ML VIAL ONE (15:33)
[2018-06-19] MEDS ORDERED: PROPOFOL 10 MG/ML 20 ML VIAL IV ONE (15:33)
[2018-06-19] MEDS ORDERED: MIDAZOLAM 2 MG/2 ML VIAL ONE (15:33)
[2018-06-19] MEDS ORDERED: LIDOCAINE 1% INJ 10MG/ML (20 ML MDV) ONE (15:33)
[2018-06-19] MEDS ORDERED: GELATIN SPONGE,ABSORB (LARGE) 1 EACH SPONGE MISCELLANE ONE (16:13)
[2018-06-19] MEDS ORDERED: BUPIVACAIN-EPI 0.5%-1:200,000 30 ML VIAL SQ ONE (16:13)
[2018-06-19] MEDS ORDERED: LIDOCAINE URO-JET JELLY 2% 5 ML KIT URETHRAL ONE (16:14)
--- NOTE | 2018-06-19 16:34 | P.OP ---
Date of Procedure: 06/19/18 Preoperative Diagnosis: Symptomatic anemia Bleeding hemorrhoids GI bleed Postoperative Diagnosis: Symptomatic anemia Internal hemorrhoids, bleeding External hemorrhoids GI bleed Procedure(s) Performed: Colonoscopy Hemorrhoidectomy Anesthesia: regional Surgeon: Delmi Avendano Pathology: other (Hemorrhoids) Condition: stable Disposition: floor Indications for Procedure: 32-year-old male presented to the hospital with significant tachycardia and anemia. He has been noted to have bleeding after bowel movements over the past 5 years. He does state that he has noticed a significant increase over the past few days. Secondary to this, plan is for a colonoscopy for evaluation of the colon due to GI bleed and symptomatic anemia. Plan is also for hemorrhoidectomy if hemorrhoids are causing of symptomatically anemia. The patient was explained the risks, benefits and alternatives to the procedure. He did provide consent prior to attending the operating suite. Operative Findings: Internal hemorrhoids that were actively bleeding External hemorrhoids Description of Procedure: The patient was brought into the operating suite and placed in left lateral decubitus position. Adequate sedation was achieved using conscious sedation. A digital rectal exam was performed and mild internal hemorrhoids were palpated. An endoscope was then placed in the rectum and advanced to the level of the cecum as identified by landmarks, including the appendiceal orifice and the ileocecal valve. The prep was good. The colon scope was then slowly withdrawn, examining for any mucosal and a mallet. The cecum, ascending, transverse, descending and singly colon were visualized adequately. There were no inflammatory lesions noted throughout the colon. There were no neoplastic lesions noted throughout the colon. There was no obvious diverticulosis noted throughout the colon. Retroflexion was performed in the rectum and internal hemorrhoids were clearly visible and were noted to have some mild active bleeding. Excess air was removed. The colonoscope was withdrawn. The patient was then placed in prone jackknife position. His anus and rectum were then prepped and draped in regular sterile fashion. The patient was noted to have 2 engorged hemorrhoidal stalks along with some active bleeding. An Allis clamp was used to grasp one of the hemorrhoids stocks and an elliptical incision was made around the engorged hemorrhoid. The hemorrhoid was then dissected and excised using a LigaSure device and avoiding the sphincter. Hemostasis was maintained. The mucosal layer was then closed with running 3-0 interlocking Vicryl sutures. Care was taken to take subcuticular bites at the skin edge as to prevent any stenosis. The same technique was used to remove the second engorged hemorrhoid stock. A Gelfoam was then placed within the anal cavity after hemostasis was noted to be maintained. The patient was then awakened in the operating suite and taken to postanesthesia care unit in stable condition.
[2018-06-19] MEDS: HYDROmorphone 1 MG/ML 1 ML SYRINGE IVP ONE ×4 (16:47→17:20)
[2018-06-19] MEDS ORDERED: LACTATED RINGERS 1,000 ML IV ONE (17:29)
[2018-06-19] MEDS: HYDROcodone/APAP 5-325MG 1 EACH TAB PO PRN (21:21)
[2018-06-19] MEDS: DOCUSATE 100 MG CAP PO SCH (21:22)
--- NOTE | 2018-06-20 01:42 | P.PN ---
Subjective Progress Note Date: 06/18/18 Principal diagnosis: Acute lower GI bleed likely hemorrhoidal Patient is a 32-year-old male with a known history of hypertension currently not on any medications, previous history of colonoscopy due to GI bleed about 5 years ago came to ER with the complaints of increased shortness of breath after climbing up one states for the past few days and was also noted to have elevated heart rate up to 160s and early passed out. Patient came to ER for evaluation. Patient noticed to have bright blood in the toilet for past few days. Otherwise patient denied any complaints of chest pain. No shortness of breath at rest. No leg swelling. Patient was found to have a hemoglobin level of 7.6 on admission. Patient underwent 1 unit of PRBC transfusion due to symptomatic anemia. MCV 63 and elevated RDW. chest x-ray showed no acute cardio pulmonary process. EKG showed sinus tachycardia. 06/18/2018 Patient did have bright red blood in the stool today. Hemoglobin is 8.3. Patient is iron deficient and IV iron 3 dose was ordered. Gen. surgery is following and is planning for colonoscopy tomorrow area No complaints of chest pain or shortness of breath. No nausea vomiting or diarrhea. Heart rate is controlled. Denied any shortness of breath with walking. Current medications reviewed. Objective - Vital Signs Vital signs: Vital Signs Temp 97.5 F L 06/18/18 19:48 Pulse 63 06/18/18 19:48 Resp 15 06/18/18 19:48 BP 131/90 06/18/18 19:48 Pulse Ox 100 06/18/18 19:48 Intake & Output 06/18/18 06/18/18 06/19/18 06:59 18:59 06:59 Intake Total 118 Balance 118 Intake: Oral 118 Other: Voiding Method Toilet # Voids 2 - Exam PHYSICAL EXAMINATION: Patient is lying in the bed comfortably, no acute distress, awake alert and oriented.. HEENT: Normocephalic. Neck is supple. Pupils reactive. Nostrils clear. Oral cavity is moist. Ears reveal no drainage. Neck reveals no JVD, carotid bruits, or thyromegaly. CHEST EXAMINATION: Trachea is central. Symmetrical expansion. Lung sinclair clear to auscultation and percussion. CARDIAC: Normal S1, S2 with no gallops. No murmurs ABDOMEN: Soft. Bowel sounds normal. No organomegaly. No abdominal bruits. Extremities: reveal no edema. No clubbing or cyanosis Neurologically awake, alert, oriented x3 with well-coordinated movements. No focal deficits noted Skin: No rash or skin lesions. Psychiatric: Coperative. Nonsuicidal Musculoskeletal: No joint swelling or deformity. Normal range of motion. - Labs CBC & Chem 7: 06/19/18 09:01 06/19/18 09:01 Labs: Abnormal Lab Results - Last 24 Hours (Table) 06/17/18 06/17/18 06/18/18 Range/Units 08:40 08:40 06:53 Hgb 8.3 L (13.0-17.5) gm/dL Hct 28.4 L (39.0-53.0) % MCV 65.8 L (80.0-100.0) fL MCH 19.1 L (25.0-35.0) pg MCHC 29.1 L (31.0-37.0) g/dL RDW 18.8 H (11.5-15.5) % POC Glucose (mg/dL) (75-99) mg/dL Iron 13 L (65-175) ug/dL Iron Saturation 3.38 L (15.00-50.00) Ferritin 1.9 L (22.0-322.0) ng/mL 06/18/18 Range/Units 20:16 Hgb (13.0-17.5) gm/dL Hct (39.0-53.0) % MCV (80.0-100.0) fL MCH (25.0-35.0) pg MCHC (31.0-37.0) g/dL RDW (11.5-15.5) % POC Glucose (mg/dL) 74 L (75-99) mg/dL Iron (65-175) ug/dL Iron Saturation (15.00-50.00) Ferritin (22.0-322.0) ng/mL Assessment and Plan Assessment: Acute acute on chronic blood loss anemia Acute lower GI bleed likely hemorrhoidal. Symptomatic anemia Microcytic iron deficiency anemia. Hypertension history not on any medications currently. Previous history of colonoscopy about 5 years ago Plan: Patient be continued on IV hydration. Patient was given 1 unit of PRBC. Continue to monitor H&H. Denied any active bleeding at this time. General surgery is following.. Continue with IV iron.. Follow up closely and further recommendations based on the clinical course. Time with Patient: Greater than 30
--- NOTE | 2018-06-20 01:43 | P.PN ---
Subjective Progress Note Date: 06/19/18 Principal diagnosis: Acute lower GI bleed likely hemorrhoidal Patient is a 32-year-old male with a known history of hypertension currently not on any medications, previous history of colonoscopy due to GI bleed about 5 years ago came to ER with the complaints of increased shortness of breath after climbing up one states for the past few days and was also noted to have elevated heart rate up to 160s and early passed out. Patient came to ER for evaluation. Patient noticed to have bright blood in the toilet for past few days. Otherwise patient denied any complaints of chest pain. No shortness of breath at rest. No leg swelling. Patient was found to have a hemoglobin level of 7.6 on admission. Patient underwent 1 unit of PRBC transfusion due to symptomatic anemia. MCV 63 and elevated RDW. chest x-ray showed no acute cardio pulmonary process. EKG showed sinus tachycardia. 06/18/2018 Patient did have bright red blood in the stool today. Hemoglobin is 8.3. Patient is iron deficient and IV iron 3 dose was ordered. Gen. surgery is following and is planning for colonoscopy tomorrow area No complaints of chest pain or shortness of breath. No nausea vomiting or diarrhea. Heart rate is controlled. Denied any shortness of breath with walking. 06/19/2018 Hemoglobin is 8.7 today. Denied any complaints of abdominal pain. No nausea vomiting. No fever no chills. No chest pain or shortness of breath. Patient underwent colonoscopy showed internal hemorrhoids with active bleeding. Continue to monitor hemoglobin for another 24 hours. Anticipate discharge to [facility] once cleared by general surgery. Current medications reviewed. Objective - Vital Signs Vital signs: Vital Signs Temp 98.3 F 06/19/18 17:58 Pulse 71 06/19/18 18:59 Resp 14 06/19/18 17:58 BP 121/78 06/19/18 18:59 Pulse Ox 93 L 06/19/18 17:58 Intake & Output 06/19/18 06/19/18 06/20/18 06:59 18:59 06:59 Intake Total 1618 1000 Output Total 20 Balance 1618 980 Intake: IV 1000 Intake, IV Titration 1500 Amount Sodium Chloride 0.9% 1, 1500 000 ml @ 125 mls/hr IV . Q8H EMILY Rx#:[id number] Oral 118 Output: Estimated Blood Loss 20 Other: # Voids 2 - Exam PHYSICAL EXAMINATION: Patient is lying in the bed comfortably, no acute distress, awake alert and oriented.. HEENT: Normocephalic. Neck is supple. Pupils reactive. Nostrils clear. Oral cavity is moist. Ears reveal no drainage. Neck reveals no JVD, carotid bruits, or thyromegaly. CHEST EXAMINATION: Trachea is central. Symmetrical expansion. Lung sinclair clear to auscultation and percussion. CARDIAC: Normal S1, S2 with no gallops. No murmurs ABDOMEN: Soft. Bowel sounds normal. No organomegaly. No abdominal bruits. Extremities: reveal no edema. No clubbing or cyanosis Neurologically awake, alert, oriented x3 with well-coordinated movements. No focal deficits noted Skin: No rash or skin lesions. Psychiatric: Coperative. Nonsuicidal Musculoskeletal: No joint swelling or deformity. Normal range of motion. - Labs CBC & Chem 7: 06/19/18 09:01 06/19/18 09:01 Labs: Abnormal Lab Results - Last 24 Hours (Table) 06/19/18 06/19/18 Range/Units 09:01 09:01 Hgb 8.7 L (13.0-17.5) gm/dL Hct 29.9 L (39.0-53.0) % MCV 68.9 L (80.0-100.0) fL MCH 19.9 L (25.0-35.0) pg MCHC 28.9 L (31.0-37.0) g/dL RDW 18.9 H (11.5-15.5) % Chloride 110 H (98-107) mmol/L BUN 6 L (9-20) mg/dL Assessment and Plan Assessment: Acute acute on chronic blood loss anemia Acute lower GI bleed due to internal hemorrhoidal. Symptomatic anemia Microcytic iron deficiency anemia. Hypertension history not on any medications currently. Previous history of colonoscopy about 5 years ago Plan: Patient be continued on IV hydration. Patient was given 1 unit of PRBC. Continue to monitor H&H. Denied any active bleeding at this time. General surgery is following.. Continue with IV iron.. Follow up closely and further recommendations based on the clinical course.
[2018-06-20] MEDS: MORPHINE SULFATE 4 MG/ML SYRINGE IVP PRN ×2 (02:29→09:44)
[2018-06-20] MEDS: HYDROcodone/APAP 5-325MG 1 EACH TAB PO PRN ×2 (05:04→12:24)
[2018-06-20] MEDS: SODIUM CHLORIDE 0.9% 1,000 ML IV SCH ×2 (05:05)
[2018-06-20 07:47] LABS: Anisocytosis Moderate; Basophils % (A) 0 %; Eosinophils % (A) 0 %; HCT 30.4 % (39.0-53.0); HGB 8.6 gm/dL (13.0-17.5); Hypochromasia Marked; Lymphocytes # (A) 1.7 k/uL (1.0-4.8); Lymphocytes % (A) 18 %; MCH 19.4 pg (25.0-35.0); MCHC 28.2 g/dL (31.0-37.0); MCV 68.7 fL (80.0-100.0); Mean Platelet Volume 8.6; Microcytosis Marked; Monocytes # (A) 0.3 k/uL (0-1.0); Monocytes % (A) 3 %; Neutrophils # (A) 7.5 k/uL (1.3-7.7); Neutrophils % (A) 77 %; Platelet Count 329 k/uL (150-450); Poikilocytosis Marked; RBC 4.43 m/uL (4.30-5.90); WBC 9.8 k/uL (3.8-10.6)
[2018-06-20 07:57] VITALS: BP 132/76; PULSE 89; RESP 16; TEMP 98.3
[2018-06-20] MEDS: SODIUM FERRIC GLUCONAT-SUCROSE 125 MG in SODIUM CHLORIDE 0.9% 100 ML IVPB SCH (09:43)
[2018-06-20] MEDS: DOCUSATE 100 MG CAP PO SCH (09:44)
[2018-06-20] MEDS: PANTOPRAZOLE 40 MG/10 ML VIAL IVP SCH (09:44)
--- NOTE | 2018-06-20 15:55 | P.PN ---
Subjective Progress Note Date: 06/20/18 Patient seen and examined at bedside. Complains of pain at the surgical site. Has had a mild amount of flatus. Denies nausea vomiting. No significant active bleeding. Objective - Vital Signs Vital signs: Vital Signs Temp 98.3 F 06/20/18 07:00 Pulse 89 06/20/18 07:00 Resp 16 06/20/18 07:00 BP 132/76 06/20/18 07:00 Pulse Ox 98 06/20/18 07:00 Intake & Output 06/19/18 06/20/18 06/20/18 18:59 06:59 18:59 Intake Total 1000 1450 730 Output Total 20 Balance 980 1450 730 Intake: IV 1000 Intake, IV Titration 1450 Amount Sodium Chloride 0.9% 1, 1250 000 ml @ 125 mls/hr IV . Q8H EMILY Rx#:[id number] Sodium Ferric Gluconat- 200 Sucrose 125 mg In Sodium Chloride 0.9% 100 ml @ 100 mls/hr IVPB DAILY EMILY Rx#:[id number] Oral 730 Output: Estimated Blood Loss 20 Other: Voiding Method Toilet # Voids 2 1 3 - Constitutional General appearance: Present: cooperative, no acute distress - EENT Eyes: Present: PERRLA - Respiratory Details: No difficulty with respiration - Gastrointestinal Gastrointestinal Comment(s): Soft, nontender, nondistended, no rebound, no guarding - Psychiatric Psychiatric: Present: A&O x's 3 - Labs CBC & Chem 7: 06/20/18 06:32 06/19/18 09:01 Labs: Abnormal Lab Results - Last 24 Hours (Table) 06/20/18 Range/Units 06:32 Hgb 8.6 L (13.0-17.5) gm/dL Hct 30.4 L (39.0-53.0) % MCV 68.7 L (80.0-100.0) fL MCH 19.4 L (25.0-35.0) pg MCHC 28.2 L (31.0-37.0) g/dL RDW 20.0 H (11.5-15.5) % Assessment and Plan (1) GI bleed Narrative/Plan: 32-year-old male postoperative day #1 from colonoscopy and hemorrhoidectomy - Patient is surgically stable for discharge. I have provided the patient with a prescription for narcotic, lidocaine ointment and stool softener. I did provide directions on wound care and expectations for the upcoming days after surgery. The patient was understanding of this and plans to take the medication as prescribed and will remain on a soft diet. Anemia treatment per medicine team. Current Visit: Yes Status: Acute Code(s): K92.2 - GASTROINTESTINAL HEMORRHAGE, UNSPECIFIED SNOMED Code(s): 80834652
--- NOTE | 2018-06-20 16:29 | P.DS ---
Providers Date of admission: 06/18/18 10:36 Attending physician: Magaly Alejo MD Consults: 06/17/18 16:28 Consult Physician Routine Consulting Provider: Delmi Avendano Consult Reason/Comments: lower gi bleed, skin tags Do you want consulting provider notified?: Yes, Notify in am Primary care physician: Stated None Hospital Course: Patient was admitted for acute on chronic blood loss anemia from lower GI bleed due to internal hemorrhoids patient underwent hemorrhoidectomy. Patient was also treated for severe iron deficiency anemia patient's serum ferritin is only 1.5 patient received a 3 days of IV iron supplementation patient will be discharged on twice a day of high and. Patient is clinically doing well and will be discharged today. Cardenas is stable now no more GI bleed. Patient under went colonoscopy as well. PHYSICAL EXAMINATION: GENERAL: The patient is alert and oriented x3, not in any acute distress. Well developed, well nourished. HEENT: Pupils are round and equally reacting to light. EOMI. No scleral icterus. No conjunctival pallor. Normocephalic, atraumatic. No pharyngeal erythema. No thyromegaly. CARDIOVASCULAR: S1 and S2 present. No murmurs, rubs, or gallops. PULMONARY: Chest is clear to auscultation, no wheezing or crackles. ABDOMEN: Soft, nontender, nondistended, normoactive bowel sounds. No palpable organomegaly. MUSCULOSKELETAL: No joint swelling or deformity. EXTREMITIES: No cyanosis, clubbing, or pedal edema. NEUROLOGICAL: Gross neurological examination did not reveal any focal deficits. SKIN: No rashes. Assessment and Plan Assessment: Acute acute on chronic blood loss anemia Acute lower GI bleed due to internal hemorrhoidal. Symptomatic anemia Microcytic iron deficiency anemia Patient Condition at Discharge: Fair Plan - Discharge Summary New Discharge Prescriptions: New Docusate [Colace] 100 mg PO BID #30 capsule Lidocaine [Lidocaine 5% Rectal Cream] 1 applic RECTAL TID PRN 14 Days gm PRN Reason: rectal pain HYDROcodone/APAP 5-325MG [[place] 5-325] 1 tab PO Q4HR PRN 3 Days #18 tab PRN Reason: Pain Ferrous Sulfate [Feosol] 325 mg PO BID #60 tab Discharge Medication List Docusate [Colace] 100 mg PO BID #30 capsule 06/20/18 [Rx] Ferrous Sulfate [Feosol] 325 mg PO BID #60 tab 06/20/18 [Rx] HYDROcodone/APAP 5-325MG [[place] 5-325] 1 tab PO Q4HR PRN 3 Days #18 tab 06/20/18 [Rx] Lidocaine [Lidocaine 5% Rectal Cream] 1 applic RECTAL TID PRN 14 Days gm 06/20/18 [Rx] Follow up Appointment(s)/Referral(s): Hannah Pressley MD [STAFF PHYSICIAN] - 1 Week Delmi Avendano DO [Doctor of Osteopathic Medicine] - 07/04/18 1:30 pm Patient Instructions/Handouts: Gastrointestinal Bleeding (DC) Activity/Diet/Wound Care/Special Instructions: Take stool softeners with narcotic pain medication Soft foods f/u with surgeon in 10 days Discharge Disposition: HOME SELF-CARE
== END 2018-06-20 16:30 | disposition home or self-care (01) | DRG 348 ==
LOC: EC 18:12 → 4SSUR 20:55 → OBSVTOIN 06-18 10:36
PROVIDERS: ADMIT Internal Medicine; ATTEND Internal Medicine
PROC: 30233N1 Transfusion of Nonautologous Red Blood Cells into Peripheral Vein, Percutaneous Approach (ICD-10-PCS; principal; 2018-06-16)
PROC: 0DJD8ZZ Inspection of Lower Intestinal Tract, Via Natural or Artificial Opening Endoscopic (ICD-10-PCS; 2018-06-19)
PROC: 06BY4ZC Excision of Hemorrhoidal Plexus, Percutaneous Endoscopic Approach (ICD-10-PCS; 2018-06-19 15:00)
DX: K64.8 Other hemorrhoids (principal); D62 Acute posthemorrhagic anemia; K64.4 Residual hemorrhoidal skin tags; D50.9 Iron deficiency anemia, unspecified; I10 Essential (primary) hypertension
CPT/HCPCS: 36415; 45378; 71046; 80048; 80053; 82272; 82550; 82553; 82728; 83540; 83550; 83735; 84443; 84484; 85025; 85027; 85379; 85610; 85730; 86850; 86900; 86901; 86920; 87502; 88304; 93005; 96360; 99285

== ENCOUNTER 2020-03-27 15:46 | Emergency (ER) | payer BC, OTHER ==
[2020-03-27 15:51] VITALS: RESP 18
[2020-03-27] MEDS ORDERED: SODIUM CHLORIDE 0.9% 500 ML 500 ML IV STA (16:04)
[2020-03-27 16:24] LABS: Appearance,Urine Clear (Clear); Basophils # (A) 0.1 k/uL (0-0.2); Basophils % (A) 1 %; Bilirubin,Urine Negative (Negative); Blood,Urine Negative (Negative); Color,Urine Yellow; Eosinophils # (A) 0.1 k/uL (0-0.7); Eosinophils % (A) 1 %; Glucose,Urine (UA) Negative (Negative); HCT 50.6 % (39.0-53.0); HGB 18.8 gm/dL (13.0-17.5); Ketones,Urine Negative (Negative); Leukocyte Esterase,Urine Negative (Negative); Lymphocytes # (A) 2.8 k/uL (1.0-4.8); Lymphocytes % (A) 29 %; MCH 33.7 pg (25.0-35.0); MCHC 37.1 g/dL (31.0-37.0); MCV 90.7 fL (80.0-100.0); Mean Platelet Volume 8.3; Monocytes # (A) 0.5 k/uL (0-1.0); Monocytes % (A) 5 %; Neutrophils # (A) 5.9 k/uL (1.3-7.7); Neutrophils % (A) 62 %; Nitrite,Urine Negative (Negative); Platelet Count 204 k/uL (150-450); Protein,Urine Negative (Negative); RBC 5.57 m/uL (4.30-5.90); RDW 12.7 % (11.5-15.5); Specific Gravity,Urine 1.025 (1.001-1.035); Urobilinogen,Urine <2.0 mg/dL (<2.0); WBC 9.5 k/uL (3.8-10.6)
[2020-03-27 16:36] LABS: ALT 86 U/L (4-49); AST 47 U/L (17-59); African American GFR (CKD) >90 (>60 ml/min/1.73 sqM); Albumin 4.8 g/dL (3.5-5.0); Alkaline Phosphatase 66 U/L (38-126); Amylase 61 U/L (30-110); Anion Gap 9 mmol/L; Blood Urea Nitrogen 17 mg/dL (9-20); Calcium 9.9 mg/dL (8.4-10.2); Carbon Dioxide 23 mmol/L (22-30); Chloride 107 mmol/L (98-107); Glucose 98 mg/dL (74-99); Lipase 209 U/L (23-300); Non-African American GFR(CKD) >90 (>60 ml/min/1.73 sqM); Potassium 4.1 mmol/L (3.5-5.1); Sodium 139 mmol/L (137-145); Total Bilirubin 1.2 mg/dL (0.2-1.3); Total Protein 7.8 g/dL (6.3-8.2)
--- NOTE | 2020-03-27 17:21 | XR ---
EXAM: Abdomen radiograph. HISTORY: Pain. TECHNIQUE: Upright AP view. COMPARISON: None available. FINDINGS: There are nondilated bowel loops with a nonobstructive pattern. There are no pathologic calcification s. No acute osseous abnormality seen. IMPRESSION: Nonobstructive bowel gas pattern.
--- NOTE | 2020-03-27 17:31 | CT ---
EXAMINATION TYPE: CT abdomen pelvis w con DATE OF EXAM: 03/27/2020 COMPARISON: Same day radiograph. HISTORY: RLQ PAIN CT DLP: 1576.1 mGycm Automated exposure control for dose reduction was used. TECHNIQUE: Helical acquisition of images was performed from the lung bases through the pelvis. CONTRAST: Performed without Oral Contrast and with IV Contrast, patient injected with 100 mL of Isovue 300. FINDINGS: LUNG BASES: No significant abnormality is appreciated. LIVER/GB: No significant abnormality is appreciated. PANCREAS: No significant abnormality is seen. SPLEEN: No significant abnormality is seen. ADRENALS: No significant abnormality is seen. KIDNEYS: No significant abnormality is seen. FREE AIR: No free air is visualized. RETROPERITONEAL ADENOPATHY: None visualized REPRODUCTIVE ORGANS: No significant abnormality is seen URINARY BLADDER: No significant abnormality is seen. PELVIC ADENOPATHY: None visualized. OSSEOUS STRUCTURES: No significant abnormality is seen. BOWEL: Small right inguinal hernia containing fat and a single loop of bowel. Smaller fat-containing left inguinal hernia. No bowel obstruction, free air or fluid. Normal appendix. OTHER: None. IMPRESSION: SMALL RIGHT GREATER THAN LEFT INGUINAL HERNIAS, CONTAINING A SINGLE LOOP OF BOWEL ON THE RIGHT. Corre late for incarceration clinically. No bowel obstruction, free air or fluid. Normal appendix.
[2020-03-27 17:47] VITALS: BP 138/94; PULSE 76; TEMP 98.1
--- NOTE | 2020-03-27 18:14 | ED ---
Abdominal Pain HPI - General Chief Complaint: Abdominal Pain Stated Complaint: Poss Hernia Time Seen by Provider: 03/27/20 15:53 Source: patient Mode of arrival: ambulatory Limitations: no limitations - History of Present Illness Initial Comments: Patient presents with complaint of hernia. He has some discomfort in the right groin area. He was seen elsewhere, and there were concern for hernia. Patient denies any belly pain or chest pain. He has no nausea or vomiting. He has no bloating. He has no weakness. He has no lightheadedness. He has no fevers or chills. - Related Data Home Medications Medication Instructions Recorded Confirmed No Known Home Medications 03/27/20 03/27/20 Allergies Allergy/AdvReac Type Severity Reaction Status Date / Time No Known Allergies Allergy Verified 03/27/20 17:02 Review of Systems ROS Statement: Those systems with pertinent positive or pertinent negative responses have been documented in the HPI. ROS Other: All systems not noted in ROS Statement are negative. Past Medical History Past Medical History: Hypertension History of Any Multi-Drug Resistant Organisms: None Reported Past Surgical History: Orthopedic Surgery, Tonsillectomy Additional Past Surgical History / Comment(s): Left knee surgery Past Anesthesia/Blood Transfusion Reactions: No Reported Reaction Additional Past Anesthesia/Blood Transfusion Reaction / Comment(s): dad had an issue with anesthesia, pt is unaware of what it was Past Psychological History: No Psychological Hx Reported Smoking Status: Never smoker Past Alcohol Use History: Occasional Past Drug Use History: None Reported - Past Family History Mother Family Medical History: No Reported History General Exam Limitations: no limitations General appearance: alert, in no apparent distress Head exam: Present: atraumatic, normocephalic, normal inspection Eye exam: Present: normal appearance, PERRL, EOMI. Absent: scleral icterus, conjunctival injection, periorbital swelling ENT exam: Present: normal exam, mucous membranes moist Neck exam: Present: normal inspection. Absent: tenderness, meningismus, lymphadenopathy Respiratory exam: Present: normal lung sounds bilaterally. Absent: respiratory distress, wheezes, rales, rhonchi, stridor Cardiovascular Exam: Present: regular rate, normal rhythm, normal heart sounds. Absent: systolic murmur, diastolic murmur, rubs, gallop, clicks GI/Abdominal exam: Present: soft, normal bowel sounds. Absent: distended, ten derness, guarding, rebound, rigid Extremities exam: Present: normal inspection, full ROM, normal capillary refill. Absent: tenderness, pedal edema, joint swelling, calf tenderness Back exam: Present: normal inspection Neurological exam: Present: alert, oriented X3, CN II-XII intact Psychiatric exam: Present: normal affect, normal mood Skin exam: Present: warm, dry, intact, normal color. Absent: rash Course Vital Signs 03/27/20 03/27/20 15:48 17:45 Temperature 98.9 F 98.1 F Pulse Rate 85 76 Respiratory 18 18 Rate Blood Pressure 146/107 138/94 O2 Sat by Pulse 99 98 Oximetry Medical Decision Making - Medical Decision Making Patient presented with groin discomfort. His exam for me does not show an obvious hernia incarceration. CT shows a hernia on both sides, with a single loop of bowel in the right side. On repeat evaluation the patient is feeling well. He has no pain or discomfort, nausea or vomiting or bloating. There is no evidence to suggest incarceration is trying relation. I did speak with his surgeon, Dr. Avendano who recommended outpatient follow-up. I believe given the patient's lack of symptoms that this is currently the best course. I did advise the patient if he develops any worsening pain, nausea, vomiting, bloating, or anything else that doesn't seem right all he should return to the [facility] immediately for reevaluation. - Lab Data Result diagrams: 03/27/20 16:15 03/27/20 16:15 Lab Results 03/27/20 03/27/20 03/27/20 Range/Units 16:15 16:15 16:15 WBC 9.5 (3.8-10.6) k/uL RBC 5.57 (4.30-5.90) m/uL Hgb 18.8 H (13.0-17.5) gm/dL Hct 50.6 (39.0-53.0) % MCV 90.7 (80.0-100.0) fL MCH 33.7 (25.0-35.0) pg MCHC 37.1 H (31.0-37.0) g/dL RDW 12.7 (11.5-15.5) % Plt Count 204 (150-450) k/uL MPV 8.3 Neutrophils % 62 % Lymphocytes % 29 % Monocytes % 5 % Eosinophils % 1 % Basophils % 1 % Neutrophils # 5.9 (1.3-7.7) k/uL Lymphocytes # 2.8 (1.0-4.8) k/uL Monocytes # 0.5 (0-1.0) k/uL Eosinophils # 0.1 (0-0.7) k/uL Basophils # 0.1 (0-0.2) k/uL Sodium 139 (137-145) mmol/L Potassium 4.1 (3.5-5.1) mmol/L Chloride 107 (98-107) mmol/L Carbon Dioxide 23 (22-30) mmol/L Anion Gap 9 mmol/L BUN 17 (9-20) mg/dL Creatinine 1.03 (0.66-1.25) mg/dL Est GFR (CKD-EPI)AfAm >90 (>60 ml/min/1.73 sqM) Est GFR (CKD-EPI)NonAf >90 (>60 ml/min/1.73 sqM) Glucose 98 (74-99) mg/dL Calcium 9.9 (8.4-10.2) mg/dL Total Bilirubin 1.2 (0.2-1.3) mg/dL AST 47 (17-59) U/L ALT 86 H (4-49) U/L Alkaline Phosphatase 66 (38-126) U/L Total Protein 7.8 (6.3-8.2) g/dL Albumin 4.8 (3.5-5.0) g/dL Amylase 61 (30-110) U/L Lipase 209 (23-300) U/L Urine Color Yellow Urine Appearance Clear (Clear) Urine pH 6.0 (5.0-8.0) Ur Specific Alpha 1.025 (1.001-1.035) Urine Protein Negative (Negative) Urine Glucose (UA) Negative (Negative) Urine Ketones Negative (Negative) Urine Blood Negative (Negative) Urine Nitrite Negative (Negative) Urine Bilirubin Negative (Negative) Urine Urobilinogen <2.0 (<2.0) mg/dL Ur Leukocyte Esterase Negative (Negative) Disposition Clinical Impression: Hernia Disposition: HOME SELF-CARE Condition: Good Is patient prescribed a controlled substance at d/c from ED?: No Referrals: Blanco Perkins MD [Primary Care Provider] - 1-2 days Delmi Avendano DO [Doctor of Osteopathic Medicine] - 1-2 days
== END 2020-03-27 18:23 | disposition home or self-care (01) ==
LOC: EC 15:46
DX: K46.9 Unspecified abdominal hernia without obstruction or gangrene (principal)
CPT/HCPCS: 36415; 80053; 82150; 83690; 85025; 81003; 74018; 74177; 99284; 96360; Q9967

== ENCOUNTER → 2020-03-30 | Outpatient (CLI) | payer BC | END | disposition home or self-care (01) | LOC: LABWHC1 11:19 | PROVIDERS: ATTEND Surgery | DX: Z20.822 Contact with and (suspected) exposure to COVID-19 (principal) | CPT/HCPCS: U0003; C9803; U0005 ==

== ENCOUNTER 2020-04-03 13:03 | Day surgery (SDC) | payer BC ==
[2020-03-31 13:10] VITALS: BMI 32.8
[~2020-04-03 13:03] MED LIST changes: -DEXAMETHASONE SOD PHOSPHATE 10 MG/ML 1 ML VIAL IV ONE; +DEXAMETHASONE SOD PHOSPHATE 4 MG/ML 1 ML VIAL IV ONE; +HEPARIN SODIUM,PORCINE 5,000 UNIT/ML 1 ML VIAL SQ PRN; +HYDROmorphone 0.5 MG/0.5 ML SYRINGE IVP PRN; +LIDOCAINE 1% (10MG/ML) FOR IV START INTRADERMA PRN; -LIDOCAINE 1% 20 ML VIAL (10MG/ML) FOR IV START INTRADERMA PRN; -SCOPOLAMINE 1.5MG/72HR PATCH TRANSDERM ONE; -ceFAZolin 2 GM in SODIUM CHLORIDE 0.9% 100 ML IVPB ONE
[2020-04-03] MEDS ORDERED: MIDAZOLAM 2 MG/2 ML VIAL IV ONE (13:59)
[2020-04-03] MEDS ORDERED: SUCCINYLCHOLINE CHLORIDE 100 MG/5 ML SYR IV ONE (15:09)
[2020-04-03] MEDS ORDERED: KETAMINE 10 MG/ML 20 ML VIAL ONE (15:09)
[2020-04-03] MEDS ORDERED: DEXAMETHASONE SOD PHOSPHATE 10 MG/ML 1 ML VIAL ONE (15:09)
[2020-04-03] MEDS ORDERED: LIDOCAINE 1% INJ 10MG/ML (20 ML MDV) ONE (15:09)
[2020-04-03] MEDS ORDERED: ROCURONIUM 10 MG/ML (10 ML VIAL) IV ONE (15:09)
[2020-04-03] MEDS ORDERED: PROPOFOL 10 MG/ML 20 ML VIAL IV ONE (15:09)
[2020-04-03] MEDS ORDERED: HYDROmorphone (PF) 1 MG/ML ONE (15:09)
[2020-04-03] MEDS ORDERED: NEOSTIGMINE 1 MG/ML 10 ML VIAL ONE (15:09)
[2020-04-03] MEDS ORDERED: GLYCOPYRROLATE 0.2 MG/ML 2 ML VIAL ONE (15:09)
[2020-04-03] MEDS ORDERED: fentaNYL (PF) 50 MCG/ML 2 ML AMP ONE (15:09)
[2020-04-03] MEDS ORDERED: MIDAZOLAM 2 MG/2 ML VIAL ONE (15:09)
[2020-04-03] MEDS ORDERED: ROPIVACAINE 5 MG/ML 30 ML VIAL ONE (15:09)
[2020-04-03] MEDS ORDERED: KETOROLAC 15 MG/ML 1 ML VIAL ONE (15:09)
[2020-04-03] MEDS ORDERED: LACTATED RINGERS 1,000 ML IV ONE (16:15)
[2020-04-03] MEDS ORDERED: LIDOCAINE 1% INJ 10MG/ML (20 ML MDV) SQ ONE (16:21)
--- NOTE | 2020-04-03 16:31 | P.OP ---
Date of Procedure: 04/03/20 Preoperative Diagnosis: Bilateral inguinal hernia Postoperative Diagnosis: Bilateral inguinal hernia Procedure(s) Performed: Robotic bilateral inguinal hernia repair with mesh Anesthesia: BERNY Surgeon: Delmi Avendano Pathology: none sent Condition: stable Disposition: same day Indications for Procedure: 34-year-old male presented to the emergency department last week with complaints of groin pain. On exam, he was found to have inguinal hernia. He was discharged and followed surgery clinic. Based on continued symptoms, plan is for a robotic bilateral inguinal hernia repair with mesh. Patient was explained risks, benefits and alternatives to the procedure did provide consent prior to attending the operating suite. Operative Findings: Bilateral inguinal hernia, right side much greater than the left side in size, both are indirect hernias Description of Procedure: The patient was brought back to the operating suite and placed in supine position. After endotracheal anesthesia was induced, arms were tucked to his sides bilaterally and all pressure points were padded. SCDs were also placed in bilateral lower extremities and were working throughout the entire case. Preoperative antibiotics were given prior to the incision. A timeout was performed with all team members in agreement with correct patient, procedure and location. A supraumbilical incision was made approximately 27 2. To the pubic symphysis. The abdomen was then entered under direct visualization. At this point pneumoperitoneum was achieved. 2 additional incisions were made at approximately 11 some areas lateral to the super umbilical incision and 18 mm trochars were placed. The patient was then placed in Trendelenburg position and the hernia sites were clearly visualized bilaterally. Both appeared to be indirect inguinal hernias. The robot was then docked appropriately. Incision was then made just lateral to the medial umbilical ligament on the right side with monopolar scissors and the peritoneal flap was created and was taken down towards Shaheed's ligament. The flap was then extended laterally. Attention was then turned to the indirect internal hernia. The sac was then freed from the cord while preserving the cord structures. At this point the indirect hernia was reduced. Once the entire space was appropriately dissected out, attention was turned to the left side. Incision was then made just lateral to the medial umbilical ligament on the left side with monopolar scissors and the peritoneal flap was created and was taken down towards Shaheed's ligament. The flap was then extended laterally. Attention was then turned to the indirect inguinal hernia. The sac was then freed from the cord all all preserving the cord structures. At this point the indirect hernia was reduced. Once he tires base was appropriately dissected out, we brought the laparoscopic parietex progrip mesh and unrolled it over the hernia sites. Once appropriately in place, the peritoneal flaps were closed using running 20V lock suture. Once this was completed, we removed all robotic instruments and Dr. busch. The super umbilical fascial incision was then closed with 0 Vicryl suture using the Roberto Manjarrez device. This was done under lap scopic guidance. All skin incisions were then closed with 4-0 Vicryl suture. The patient was awakened and taken to recovery unit in stable condition.
[2020-04-03 16:44] VITALS: TEMP 97.9
[2020-04-03] MEDS: fentaNYL (PF) 50 MCG/ML 2 ML AMP IVP ONE ×2 (16:48→17:01)
[2020-04-03 16:55] VITALS: RESP 16
[2020-04-03] MEDS ORDERED: HYDROcodone/APAP 5-325MG 1 EACH TAB ONE (17:28)
[2020-04-03 17:36] VITALS: PULSE 79
[2020-04-03] MEDS ORDERED: HYDROcodone/APAP 5-325MG 1 EACH TAB PO ONE (17:38)
[2020-04-03 17:50] VITALS: BP 142/92
--- NOTE | 2020-04-06 07:20 | P.ANPRN ---
Procedure Note - Anesthesia - Nerve Block Performed Bilateral Transversus Abdominis Single Time Out Performed: Yes Date of Procedure: 04/03/20 Procedure Start Time: 13:59 Procedure Stop Time: 14:11 Location of Patient: PreOp Indication: Acute Post-Operative Pain, Requested by Surgeon Sedation Type: Sedate with meaningful contact maintained Preparation: Sterile Prep Position: Supine Needle Types: Pajunk Needle Gauge: 21 Ultrasound used to visualize needle placement: Yes Ultrasound used to observe medication spread: Yes Blood Aspirated: No Pain Paresthesia on Injection Noted: No Resistance on Injection: Normal Image Stored and Saved: Yes Events: Uneventful and Well Tolerated (ropi .5% 20 cc plus dexamethasone bilaterally)
== END 2020-04-03 18:19 | disposition home or self-care (01) ==
LOC: OR 13:03
PROVIDERS: ATTEND Surgery
DX: K40.20 Bilateral inguinal hernia, without obstruction or gangrene, not specified as recurrent (principal); I10 Essential (primary) hypertension; E66.9 Obesity, unspecified; Z87.19 Personal history of other diseases of the digestive system; Z98.890 Other specified postprocedural states; Z68.33 Body mass index [BMI] 33.0-33.9, adult
CPT/HCPCS: 49650; S2900; 64488